=== PATIENT | male | born 1970 | race Caucasian/White ===

== ENCOUNTER 2018-06-10 17:01 | Emergency (ER) | payer OTHER ==
[~2018-06-10] VITALS: Ht 182.9 cm; Wt 98.3 kg
[2018-06-10] MEDS ORDERED: FLEXERIL10 MG PO (19:29)
[2018-06-10] MEDS ORDERED: LIDODERM 5% P1 PATCH TD (19:29)
[2018-06-10] MEDS ORDERED: NAPROSYN500 MG PO (19:29)
[2018-06-10 19:44] VITALS: BP 174/108
== END 2018-06-10 19:56 | disposition home or self-care (01) ==
LOC: EXP 17:01 → EME 17:01 → EXP 19:56
DX: M25.512 Pain in left shoulder (principal); M50.30 Other cervical disc degeneration, unspecified cervical region; I10 Essential (primary) hypertension; F41.9 Anxiety disorder, unspecified
CPT/HCPCS: 72040; 73030; 99281; 99284; J1885